=== PATIENT | male | born 1960 | race Caucasian/White ===

== ENCOUNTER 2019-04-29 16:44 | Inpatient (IN) | payer OTHER ==
[~2019-04-29] VITALS: Ht 193 cm; Wt 143.4 kg
--- NOTE | 2019-04-29 16:47 | NUR ---
ECG done as ordered by Dr. Hartman. Patient tolerated the procedure well. Report given to
[2019-04-29 16:49] VITALS: BP_SYST 151
--- NOTE | 2019-04-29 17:25 | NUR ---
Patient to ER bed 01 to gown for evaluation. Side rails up.
--- NOTE | 2019-04-29 17:27 | NUR ---
Patient arrived in the ED c/o heart palpitations, shortness of breath, BLE swelling and abdominal discomfort that started yesterday. Denied any chest pain. Denied any fevers, chills, vomiting or nausea. Patient is alert and oriented x4, respirations even and unlabored, speaking in full sentences and ambulating with a steady gait. VSS, pain level 8/10. Informed of the approximate wait time. Instructed to notify ED staff for any changes in condition or worsening of symptoms while waiting to be seen by a provider. Patient verbalized understanding.
--- NOTE | 2019-04-29 17:30 | NUR ---
ER Dr. Hartman at bedside examining patient.
[2019-04-29] MEDS ORDERED: NACL 0.9% 1,000 ML IV ONE (17:31)
[2019-04-29] MEDS ORDERED: DILTIAZEM HCL 25 MG/5 ML VIAL IVP ONE (17:45)
[2019-04-29] MEDS ORDERED: ASPIRIN 81 MG TAB.CHEW PO ONE (17:45)
[2019-04-29 18:24] LABS: BASOPHILS # (AUTO) 0.1 K/uL (0.0-0.2); BASOPHILS % (AUTO) 0.7 % (0.0-2.0); EOSINOPHILS # (AUTO) 0.1 K/uL (0.0-0.4); EOSINOPHILS % (AUTO) 1.8 % (0.0-4.0); HEMATOCRIT 37.7 % (36-54); HEMOGLOBIN 11.7 g/dL (14.0-18.0); LYMPHOCYTES # (AUTO) 1.4 K/uL (1.0-5.5); LYMPHOCYTES % (AUTO) 17.6 % (20.5-51.5); MEAN CORPUSCULAR HEMOGLOBIN 23 pg (27-31); MEAN CORPUSCULAR HGB CONC 31 % (32-36); MEAN CORPUSCULAR VOLUME 73 fL (79.0-98.0); MONOCYTES # (AUTO) 0.6 K/uL (0.0-1.0); MONOCYTES % (AUTO) 7.3 % (1.7-9.3); NEUTROPHILS # (AUTO) 5.6 K/uL (1.8-7.7); NEUTROPHILS % (AUTO) 72.6 % (40.0-70.0); PLATELET COUNT (AUTO) 285 K/uL (130-430); RED BLOOD CELL COUNT(AUTO) 5.19 MIL/uL (4.2-6.2); RED CELL DISTRIBUTION WIDTH 16.3 % (9.0-15.0); WHITE BLOOD COUNT (AUTO) 7.7 K/uL (4.8-10.8)
[2019-04-29 18:32] LABS: ANION GAP 7 (5-15); CALCIUM 8.5 mg/dL (8.4-11.0); CHLORIDE 103 mmol/L (98-107); CREATININE 0.87 mg/dL (0.55-1.30); GLUCOSE 103 mg/dL (70-99); POTASSIUM 3.9 mmol/L (3.5-5.1); SODIUM SERUM 138 mmol/L (136-145); UREA NITROGEN, BLOOD 14 mg/dL (8-21)
[2019-04-29 18:35] LABS: GFR AFRICAN AMERICAN 116 mL/min (>90)
[2019-04-29 18:41] LABS: ALANINE AMINOTRANSFERASE 32 U/L (12-78); ALBUMIN 3.7 g/dL (3.4-4.8); ASPARTATE AMINOTRANSFERASE 29 U/L (10-37); TOTAL BILIRUBIN 0.9 mg/dL (0.0-1.0)
--- NOTE | 2019-04-29 18:45 | NUR ---
# 20 gauge angiocath placed to LFA. Use of asceptic technique. Opsite placed over site. Blood return noted. Blood for lab drawn from site. Flushed with 10 cc of normal saline. No evidence of infiltration noted. Patient tolerated well.
--- NOTE | 2019-04-29 18:54 | NUR ---
Administered Cardizem IVP and ASA PO as ordered by Dr. Hartman. Patient tolerated the medications well. See eMAR for details.
--- NOTE | 2019-04-29 19:07 | NUR ---
Note undone in EDM - 04/29/19 at 1908 by [email or web address] # 20 gauge angiocath placed to LFA. Use of asceptic technique. Opsite placed over site. Blood return noted. Blood for lab drawn from site. Flushed with 10 cc of normal saline. No evidence of infiltration noted. Patient tolerated well.
[2019-04-29 19:12] LABS: PROTHROMBIN TIME 10.4 SECS (9.5-12.5)
--- NOTE | 2019-04-29 19:23 | NUR ---
Patient will be admitted to care of Dr. Collado . Admitted to Telemetry unit. Bed placement pending.
--- NOTE | 2019-04-29 19:32 | NUR ---
Urine specimen collected and dropped off at the lab.
[2019-04-29] MEDS: DILTIAZEM HCL 30 MG TABLET PO SCH ×2 (19:45→23:49)
--- NOTE | 2019-04-29 19:45 | NUR ---
Report given and care transferred to DUANE Magallon.
[2019-04-29] MEDS ORDERED: GABA800T PO (20:01)
[2019-04-29] MEDS ORDERED: MORP30TA59 PO (20:01)
[2019-04-29] MEDS ORDERED: AMLO2.5T2 PO (20:01)
[2019-04-29] MEDS ORDERED: ZOLP10TA2 PO (20:01)
[2019-04-29] MEDS ORDERED: SERT-131 PO (20:01)
[2019-04-29] MEDS ORDERED: PANT20TA2 PO (20:01)
--- NOTE | 2019-04-29 20:42 | NUR ---
ad Will go to room 108 C. Belongings list completed. Complete and up to date summary report printed. SBAR report to be given at bedside with opportunity for questions.
--- NOTE | 2019-04-29 20:47 | NUR ---
Patient is full code
--- NOTE | 2019-04-29 21:09 | NUR ---
Transfer to Telemetry via ACLS protocol. Licensed nurse present. IV present no signs or symptoms of infiltration.
--- NOTE | 2019-04-29 21:20 | NUR ---
ADMISSION NOTES; pt. admitted from ER with DX new onset of Atrial fib. pt. settled in bed., call light within reach, denies shortness of breath at this time but c/o tightness on his legs and abdomen, noted swelling. place on conveyor monitor. HR 104. IV lock on rt. forearm. pt. moves all extremities well. instructed to call for help and verbalized understanding.
[2019-04-29 21:30] VITALS: BP_SYST 146
--- NOTE | 2019-04-29 23:30 | NUR ---
NOTES: pt. woke up sitting at the edge of the bed, IVF completed, IV lock on left forearm. pt. back to bed and repositioned self.
[2019-04-29 23:40] VITALS: BP_SYST 160
--- NOTE | 2019-04-30 | NUR ---
NOTES: pt. getting upset about his pain medication, tried to explain no medications has been reconciled ,that will call charge nurse Nancy sol aware. Addendum: 04/30/19 at 0032 by Minerva Reyes RN pt. feeling cold, provided with at least 3 bath blankets.
--- NOTE | 2019-04-30 00:01 | NUR ---
Paged paged doctor mcallister for orders
--- NOTE | 2019-04-30 00:30 | NUR ---
NOTES: paged Dr. Collado again by [place] ([place]).
--- NOTE | 2019-04-30 00:34 | NUR ---
CONSULT: CONSULT CALLED FOR DR. GARCIA I SPOKE WITH DANOBIA STITCH SEPARATOR #[id number] REASON FOR CONSULT: A FIB REQUESTING CONSULT: DR SERRANO STUDIO OWNER PHONE NUMBER: [phone]
--- NOTE | 2019-04-30 01:15 | NUR ---
NOTES: Dr. Collado paged and able to talk to him and informed about pt. c/o pain and his medications, ok to have MS ER po and neurontin, will order.
[2019-04-30] MEDS: GABAPENTIN 300 MG CAPSULE PO SCH ×4 (01:52→22:55)
[2019-04-30] MEDS: MORPHINE SULFATE 30 MG TABLET.SA PO SCH ×2 (01:52→16:42)
--- NOTE | 2019-04-30 01:55 | NUR ---
NOTES: medication verified by pharmacy. medicated with MS Contin and neurontin as ordered fro his back and leg pain. repositioned self for comfort. voided per urinal. pt. given snacks, sandwich ,jello and juice.
--- NOTE | 2019-04-30 03:37 | NUR ---
NOTES: pt. sleeping when checked. call light within reach.
--- NOTE | 2019-04-30 04:00 | NUR ---
NOTES: pt. woke up feeling anxious, wants to walk around, pt. informed not safe with his legs swollen and unsteady. repositioned and covered up with blankets. been voiding per urinal. call light within reach.
--- NOTE | 2019-04-30 05:30 | NUR ---
NOTES: condition observed. continue to monitor.
[2019-04-30 06:30] VITALS: BP_SYST 150
[2019-04-30] MEDS: DILTIAZEM HCL 30 MG TABLET PO SCH ×3 (06:43→18:00)
--- NOTE | 2019-04-30 06:48 | NUR ---
CLOSING NOTES; pt. awakened for due med. HR 97. been sleeping. still noted a feeling of tightness on his lower extremities. remains on atrial fib controlled rate. for further care and assitance. call ligth within reach.
--- NOTE | 2019-04-30 07:07 | NUR ---
Nutrition Update Eris Scale 18 noted. Pt admitted for Atrial Fibrillation Diet: No diet order BMI: 41.6 kg/m2 RD to follow per nutrition care standards.
[2019-04-30 08:00] VITALS: BP_SYST 160
[2019-04-30] MEDS ORDERED: FUROSEMIDE 20 MG/2 ML VIAL IVP ONE (09:30)
[2019-04-30] MEDS ORDERED: ACETAMINOPHEN 325 MG TABLET PO PRN (09:45)
[2019-04-30] MEDS ORDERED: ONDANSETRON HCL 4 MG/2 ML VIAL IVP PRN (09:45)
[2019-04-30] MEDS ORDERED: METOCLOPRAMIDE HCL 10 MG/2 ML VIAL IVP PRN (09:45)
[2019-04-30] MEDS ORDERED: ENOXAPARIN SODIUM 30 MG/0.3 ML SYRINGE SUBCUT ONE ×2 (10:00→16:30)
[2019-04-30] MEDS ORDERED: ENOXAPARIN SODIUM 120 MG/0.8 ML SYRINGE SUBCUT ONE ×2 (10:00→16:30)
[2019-04-30] MEDS: MORPHINE 2 MG/ML INJ. SYRINGE IVP PRN (10:26)
[2019-04-30] MEDS: FUROSEMIDE 40 MG/4 ML VIAL IVP SCH ×2 (16:43→22:56)
[2019-04-30] MEDS: METOPROLOL TARTRATE 25 MG TABLET PO SCH ×2 (16:44→22:56)
[2019-04-30] MEDS ORDERED: RIVAROXABAN 10 MG TABLET PO SCH (18:00)
--- NOTE | 2019-04-30 19:35 | NUR ---
CHANGE OF SHIFT; pt. sleeping when received. no acute distress. call light within reach. will reassess later.
--- NOTE | 2019-04-30 20:45 | NUR ---
NOTES: pt. woke up and wants to ambulate on the hallway since his back hurting, charge nurse Nancy babcock. pt. ambulated and tolerated fairly.
[2019-04-30 21:00] VITALS: BP_SYST 110
[2019-04-30] MEDS ORDERED: ENOXAPARIN SODIUM 120 MG/0.8 ML SYRINGE SQ SCH (21:00)
[2019-04-30] MEDS ORDERED: ENOXAPARIN SODIUM 30 MG/0.3 ML SYRINGE SUBCUT SCH (21:00)
--- NOTE | 2019-04-30 21:00 | NUR ---
NOTES: pt. back to his room. VS checked. all meds on day time was given delayed in the afternoon and all meds will be delayed as well since its too soon for the schedule time and pt. informed. on cardia monitor and shows atrial fib , controlled rate.
--- NOTE | 2019-04-30 23:00 | NUR ---
NOTES: pt. sitting at the edge of the bed, dozing off, due meds given. voided per urinal. jello given per request.
[2019-04-30 23:30] VITALS: BP_SYST 125
[2019-05-01] MEDS: DILTIAZEM HCL 30 MG TABLET PO SCH ×4 (00:13→17:47)
--- NOTE | 2019-05-01 00:19 | NUR ---
NOTES: pt. still awake, getting anxious. back to bed and try to relax. voided large amt. of urine per urinal.
--- NOTE | 2019-05-01 03:00 | NUR ---
NOTES: pt. been sleeping when checked. cardiac pattern unchanged. continue to monitor.
--- NOTE | 2019-05-01 04:26 | NUR ---
NOTES: pt. called and wants his pain pill, informed him its not due till 0600 but will give a little early, pt. agreed. pt. feels hungry, sandwich and jello given. been dozing on and off.
[2019-05-01] MEDS: MORPHINE SULFATE 30 MG TABLET.SA PO SCH ×2 (05:35→17:44)
--- NOTE | 2019-05-01 06:00 | NUR ---
NOTES: due pain medication given, eating his snacks now. pt. needs attended.
--- NOTE | 2019-05-01 06:35 | NUR ---
CLOSING NOTES; pt. sitting in bed dozing off after pain med given. asked to lay down in bed and weighed 336 lbs. no acute distress. IV lock patent and flushed on left forearm. call light within reach. turn to sides by himself. for further assistance.
[2019-05-01 07:15] LABS: BASOPHILS # (AUTO) 0.1 K/uL (0.0-0.2); BASOPHILS % (AUTO) 1.5 % (0.0-2.0); EOSINOPHILS # (AUTO) 0.1 K/uL (0.0-0.4); HEMATOCRIT 36.5 % (36-54); HEMOGLOBIN 11.4 g/dL (14.0-18.0); LYMPHOCYTES # (AUTO) 1.4 K/uL (1.0-5.5); LYMPHOCYTES % (AUTO) 19.8 % (20.5-51.5); MEAN CORPUSCULAR HEMOGLOBIN 23 pg (27-31); MEAN CORPUSCULAR HGB CONC 31 % (32-36); MEAN CORPUSCULAR VOLUME 72 fL (79.0-98.0); MONOCYTES # (AUTO) 0.8 K/uL (0.0-1.0); MONOCYTES % (AUTO) 11.6 % (1.7-9.3); NEUTROPHILS # (AUTO) 4.6 K/uL (1.8-7.7); NEUTROPHILS % (AUTO) 65.1 % (40.0-70.0); PLATELET COUNT (AUTO) 283 K/uL (130-430); RED BLOOD CELL COUNT(AUTO) 5.08 MIL/uL (4.2-6.2); RED CELL DISTRIBUTION WIDTH 16.3 % (9.0-15.0)
[2019-05-01 07:37] LABS: CALCIUM 8.7 mg/dL (8.4-11.0); CREATININE 0.85 mg/dL (0.55-1.30); POTASSIUM 3.7 mmol/L (3.5-5.1)
[2019-05-01 08:00] VITALS: BP_SYST 151
[2019-05-01] MEDS: GABAPENTIN 300 MG CAPSULE PO SCH ×3 (08:33→20:18)
[2019-05-01] MEDS: FUROSEMIDE 40 MG/4 ML VIAL IVP SCH ×2 (08:33→20:17)
[2019-05-01] MEDS: METOPROLOL TARTRATE 25 MG TABLET PO SCH ×2 (08:34→20:18)
[2019-05-01] MEDS: MORPHINE 2 MG/ML INJ. SYRINGE IVP PRN (08:35)
[2019-05-01] MEDS: ENOXAPARIN SODIUM 30 MG/0.3 ML SYRINGE SUBCUT SCH ×2 (08:49→20:30)
[2019-05-01] MEDS: ENOXAPARIN SODIUM 120 MG/0.8 ML SYRINGE SQ SCH ×2 (08:50→20:30)
[2019-05-01 12:00] VITALS: BP_SYST 133
--- NOTE | 2019-05-01 15:34 | NUR ---
Dietitian Recommendations * Recommend CCHO high carb-75 gm, cardiac diet w/ FR 1000 ml/day JUSTINA, RD Please refer to Nutrition Assessment for details. Addendum: 05/01/19 at [address] Amended: Links added.
[2019-05-01 16:00] VITALS: BP_SYST 118
[2019-05-01 17:49] VITALS: BP_SYST 148
--- NOTE | 2019-05-01 18:15 | NUR ---
WOUND CARE CONSULT ORDERED PATIENT IS DIABETIC AND NOTED MULTIPLE OLD SKIN TEARS TO THE BILATERAL ARMS.
--- NOTE | 2019-05-01 18:18 | NUR ---
NUTRITION RECOMMENDATION 1L [facility]UID [facility]RI[facility].WILL INFORM DR SERRANO.
[2019-05-01 19:00] VITALS: BP_SYST 125
--- NOTE | 2019-05-01 19:15 | NUR ---
change of shift.pt.presents quiescent affect;calm,resting viewing tv programming via telephone.no c/o pain,nausea.pt.presents general status stable.respierat[pry ssu stable;unlabored@room air.pt.capable to reposition self.call light/telephone w/in reach of the pt.family visiting@bedside.
[2019-05-01 20:00] VITALS: BP_SYST 125
--- NOTE | 2019-05-01 20:00 | NUR ---
pt.assessed.v/s assessed;values w/in normal limits.no c/o pain,nausea.i have apprised the pt.that i may provide snacks/ beverages w/in the shift.pt.requested snacks/soda;diet coke. have provided the food items.i have demonstrated the room telephone indication;pt.returned the demonstration.general status stable.respiratory status stable;unlabored@room air:o2- sat%=96%pt.capable to ambulate/reposition self independent.call light/telephone placed w/in reach of the pt.
--- NOTE | 2019-05-01 21:00 | NUR ---
2100pmedications administered.i have re-established iv access location;lt.hand;#24g.i have administered lasix;40mg ivp.i have reiterated to the pt.to utilize the urinal to measure all subsequent mictrition output.pt.requested a 2nd urinal.i have provided the 2nd urinal.pt.requested snacks/beverages.i have provided the food items.
--- NOTE | 2019-05-01 22:00 | NUR ---
pt.assessed.pt.presents quiescent affect;calm,resting viewing tv programming via telephone.no c/o pain,nausea.i have attended to the urinal:measured/cleaned placed w/in reach of the pt.pt.had requested snacks/beverages.i have provided the food items.general status stable.respiratory status stable.unlabored.pt.capable to reposition self.call light/telephone w/in reach of the pt.
--- NOTE | 2019-05-01 23:00 | NUR ---
i have attended to the urinal.measured/cleaned.urinal placed w/in reach of the pt.no requests posited@this hour. call light/telephone w/in reach of the pt.
[2019-05-02] VITALS: BP_SYST 124
--- NOTE | 2019-05-02 | NUR ---
pt.assessed v/s assessed;values w/in normal limits.the v/s assessed p/t to the administration of cardizem;30mg po midnight dose. v/s w/in parameter to administer the cardizem.no c/o pain,nausea.i have attended to the urinal:measured/cleaned.urinal placed w/in reach of the pt.pt.capable to reposition self.call light/telephone placed w/in reach of the pt.
[2019-05-02] MEDS: DILTIAZEM HCL 30 MG TABLET PO SCH ×2 (00:14→05:34)
--- NOTE | 2019-05-02 02:00 | NUR ---
pt.assessed pt.presents quiescent affect;calm,somnolent.i have attended to the urinal;measured/cleaned placed w/in reach of the pt. general status stable.respiratory status stable;unlabored.pt.capable to reposition self.call light/telephone w/in reach of the pt.
--- NOTE | 2019-05-02 04:00 | NUR ---
pt.assessed pt.presents quiescent affect;calm,somnolent.i have attended to the urinal;measured/cleaned.placed w/in reach of the pt. general status stable.respiratory status stable;unlabored.pt.capable to reposition self.call light/telephone w/in reach of the pt.
[2019-05-02] MEDS: MORPHINE 4 MG/ML INJ. SYRINGE IVP PRN ×2 (04:39→08:45)
[2019-05-02] MEDS: MORPHINE SULFATE 30 MG TABLET.SA PO SCH ×2 (05:34→17:13)
[2019-05-02] MEDS ORDERED: D5W 1,000 ML IV PRN (05:51)
[2019-05-02] MEDS ORDERED: GLUCOSE 15 GM GEL (in 37.5 GM TUBE) PO PRN (06:00)
[2019-05-02] MEDS ORDERED: DEXTROSE 50% JECT 50 ML DISP.SYRIN IVP PRN (06:00)
--- NOTE | 2019-05-02 06:30 | NUR ---
pt.assessed v/s assessed p/t the administration cardizem;30mg po 0600 dose.vs w/in parameters to administer the cardizem. i have administered ms-contin;30mg po:0600a dose.pt,had requested soda;diet coke i have provided the soda.i have attended to the urinal;measured/cleaned.pt.capable t0 reposition/ambulate self.call light /telephone w/in reach of the pt.
[2019-05-02 07:36] LABS: CALCIUM 8.9 mg/dL (8.4-11.0); CREATININE 0.81 mg/dL (0.55-1.30); POTASSIUM 3.5 mmol/L (3.5-5.1)
[2019-05-02 08:05] VITALS: BP_SYST 128
[2019-05-02] MEDS: FUROSEMIDE 40 MG/4 ML VIAL IVP SCH ×2 (08:43→20:05)
[2019-05-02] MEDS: GABAPENTIN 300 MG CAPSULE PO SCH ×3 (08:44→20:05)
[2019-05-02] MEDS: DILTIAZEM HCL 180 MG CAP.SR.24H PO SCH (08:44)
[2019-05-02] MEDS ORDERED: POTASSIUM CHLORIDE 20 MEQ TAB.PRT.SR PO ONE (08:45)
[2019-05-02] MEDS: METOPROLOL SUCCINATE 50 MG TAB.SR.24H (TOPROL XL) PO SCH (08:50)
--- NOTE | 2019-05-02 10:24 | NUR ---
pt given new gown and corky santo in bed resting.
[2019-05-02 12:02] VITALS: BP_SYST 118
--- NOTE | 2019-05-02 12:07 | NUR ---
PT'S VITALS WNL. NO FEVER. DENIES PAIN, NO SOB. LUNCH SERVED. WILL CONT TO MONITOR.
--- NOTE | 2019-05-02 16:27 | NUR ---
Social Service Note: JEWELRY ENAMELER met with pt at bedside; pt states that he received IHSS at home about 2 hours day. Pt states that he recently moved from [place] to [place]; pt states that he needs to find a new IHSS worker and a new PCP. Pt states that he had a PCP appointment today that he was unable to make due to being hospitalized. JEWELRY ENAMELER provided pt with the phone numbers for [employer] to alert them that pt has moved. JEWELRY ENAMELER will remain available for support and will follow up as needed.
[2019-05-02 16:33] VITALS: BP_SYST 112
[2019-05-02] MEDS ORDERED: RIVAROXABAN 10 MG TABLET PO SCH (18:00)
--- NOTE | 2019-05-02 18:55 | NUR ---
closing notes; pt's has been stable the whole shift, given pain meds for chronic pain. no fever,. no sob. will endorse to night nurse.
--- NOTE | 2019-05-02 19:30 | NUR ---
INITIAL NOTE: Received report from day shift nurse, patient is alert and oriented x 4, denies any pain or sob.Vitals stable. Patient has a 20G LFA intact and patent, no s/s of phlebitis or infiltration. Flushed with 10cc NS, patient tolerated well. Patient with family member at bedside, able to ambulate. Safety measures enforced and met. Bed in lowest position. Call light within reach. Will continue to monitor and carry out plan of care.
[2019-05-02 20:15] VITALS: BP_SYST 137
--- NOTE | 2019-05-02 21:30 | NUR ---
ROUNDS: Patient compliant with all scheduled meds, he tolerated well. Patient resting in bed no signs of pain or sob, family member at bedside. Bed locked and in the lowest position. Call light within reach. Will continue to monitor and carry out plan of care.
--- NOTE | 2019-05-02 23:30 | NUR ---
ROUNDS: PATIENT SHOWING NO RESPIRATORY DISTRESS OR PAIN. PATIENT VITALS STABLE. PATIENT ON TELEMETRY MONITORING.
--- NOTE | 2019-05-03 00:57 | NUR ---
ROUNDS: PATIENT AWAKE AND ON HIS PHONE SHOWING NO SIGNS AND OR SYMPTOMS OF RESPIRATORY DISTRESS. PATIENT VERBALIZES PAIN OF AN 8 OUT OF 10. PRN MEDICATION FOR SEVERE PAIN WILL BE GIVEN AT THIS TIME. BED IN LOWEST POSITION. CALL LIGHT WITHIN REACH. WILL CONTINUE TO MONITOR AND CARRY OUT PLAN OF CARE.
[2019-05-03 01:09] VITALS: BP_SYST 133
[2019-05-03] MEDS: MORPHINE 4 MG/ML INJ. SYRINGE IVP PRN (01:09)
--- NOTE | 2019-05-03 02:57 | NUR ---
ROUNDS: Patient asleep and resting. Patient showing no signs of pain or sob. will continue to monitor and carry out plan of care.
--- NOTE | 2019-05-03 04:47 | NUR ---
ROUNDS: patient asleep and showing no respiratory distress or pain. patient bed in lowest position. call light within reach. will continue to monitor and carry out plan of care.
[2019-05-03] MEDS: MORPHINE SULFATE 30 MG TABLET.SA PO SCH (06:13)
--- NOTE | 2019-05-03 06:25 | NUR ---
CLOSING NOTE: PATIENT SLEPT WELL THROUGHOUT THE NIGHT. AT THIS TIME PATIENT IS RESTING IN BED, STABLE, NO SIGNS OF RESPIRATORY DISTRESS, CALL LIGHT WITHIN REACH. BED IN LOCKED AND AT THE LOWEST LEVEL. FALL AND SAFETY PRECAUTIONS HAVE BEEN IN PLACE THROUGHOUT THE NIGHT. WILL CONTINUE TO MONITOR UNTIL BEDSIDE REPORT IS GIVEN TO AM SHIFT NURSE.
[2019-05-03 07:30] LABS: CALCIUM 8.9 mg/dL (8.4-11.0); CREATININE 0.89 mg/dL (0.55-1.30); POTASSIUM 4.1 mmol/L (3.5-5.1)
[2019-05-03 07:52] VITALS: BP_SYST 128
--- NOTE | 2019-05-03 08:00 | NUR ---
Opening: received pt in bed, pt is alert and oriented, denies pain. no sob, iv access intact and patent. no s/s of infiltration. safety precaution in place. call light in reach. bed in low position. will cont to monitor.
[2019-05-03] MEDS: DILTIAZEM HCL 180 MG CAP.SR.24H PO SCH (08:28)
[2019-05-03] MEDS: METOPROLOL SUCCINATE 50 MG TAB.SR.24H (TOPROL XL) PO SCH (08:28)
[2019-05-03] MEDS: FUROSEMIDE 40 MG/4 ML VIAL IVP SCH (08:29)
[2019-05-03] MEDS: GABAPENTIN 300 MG CAPSULE PO SCH (08:29)
--- NOTE | 2019-05-03 10:00 | NUR ---
PT IN BED, RESTING COMFORTABLY. CALL LIGHT IN REACH, BED IN LOW POSITION. ENCOURAGED TO CALL FOR ASSIST.
[2019-05-03] MEDS ORDERED: FURO-149 PO (10:58)
[2019-05-03] MEDS ORDERED: DILT180C PO (10:58)
[2019-05-03] MEDS ORDERED: RIVA20TA PO (10:58)
[2019-05-03] MEDS ORDERED: METO-542 PO (10:58)
[2019-05-03 12:47] VITALS: BP_SYST 141
--- NOTE | 2019-05-03 13:00 | NUR ---
PT RESTING, NO C/O PAIN. NO SOB. NO RESP DISTRESS. CALL LIGHT IN REACH. WILL CONT TO MONITOR.
--- NOTE | 2019-05-03 18:10 | NUR ---
D/C Patient Patient given medication reconciliation form and D/C instructions. Exit Care provided. Patient verbalized understanding. MD discussed with patient the results and treatment provided. Ambulatory with steady gait for discharge to home. Patient in stable condition, ID band removed. IV catheter removed, intact and dressing applied, no active bleeding. Rx of diltiazem, Lasix, Metoprolol, xarelto. given. Patient educated on pain management. All belongings sent with patient.
== END 2019-05-03 16:10 | disposition home or self-care (01) | DRG 308 ==
LOC: SED 16:44 → STU 19:25
PROVIDERS: ADMIT Internal Medicine Hospice and Palliative Medicine; ATTEND Internal Medicine Hospice and Palliative Medicine
DX: I48.91 Unspecified atrial fibrillation (principal); I50.41 Acute combined systolic (congestive) and diastolic (congestive) heart failure; Z68.41 Body mass index [BMI] 40.0-44.9, adult; D68.69 Other thrombophilia; I11.0 Hypertensive heart disease with heart failure; E11.9 Type 2 diabetes mellitus without complications; E66.01 Morbid (severe) obesity due to excess calories; F17.210 Nicotine dependence, cigarettes, uncomplicated; G89.29 Other chronic pain; F41.9 Anxiety disorder, unspecified; K21.9 Gastro-esophageal reflux disease without esophagitis; Z98.1 Arthrodesis status; Z79.899 Other long term (current) drug therapy
CPT/HCPCS: 36415; 71045; 80048; 80053; 83880; 84443-TC; 84484; 85025; 85379; 85610-TC; 85730-TC; 93306; 96361; 96374; 99285; G0378; J1650; J1940; J2270; J2274; J3490

== ENCOUNTER 2019-08-06 01:16 | Emergency (ER) | payer OTHER, MEDICAID ==
[~2019-08-06] VITALS: Ht 188 cm; Wt 140.6 kg
[2019-08-06 01:16] VITALS: BP_SYST 124
[~2019-08-06 01:16] MED LIST: DILT180C PO; FURO-149 PO; GABA800T PO; METO-542 PO; MORP30TA59 PO; PANT20TA2 PO; RIVA20TA PO; SERT-131 PO; ZOLP10TA2 PO
--- NOTE | 2019-08-06 01:16 | NUR ---
Patient to ER bed 4 to gown for evaluation. Side rails up. Report given to DUANE Izquierdo.
[2019-08-06] MEDS ORDERED: ACETAMINOPHEN 500 MG TABLET PO ONE (01:30)
[2019-08-06] MEDS ORDERED: MORPHINE 4 MG/ML INJ. SYRINGE IVP ONE (02:00)
[2019-08-06] MEDS ORDERED: MORPHINE 4 MG/ML INJ. SYRINGE IM ONE (02:30)
[2019-08-06 02:54] LABS: BILIRUBIN,URINE NEGATIVE (NEGATIVE); BLOOD, URINE 3+ (NEGATIVE); CLARITY/URINE SL CLOUDY (CLEAR); COLOR,URINE YELLOW (YELLOW); GLUCOSE,URINE NEGATIVE (NEGATIVE); KETONES,URINE NEGATIVE (NEGATIVE); LEUKOCYTE ESTERASE ,URINE 1+ (NEGATIVE); NITRITE, URINE NEGATIVE (NEGATIVE); PH,URINE 5.5 (5.0-8.0); PROTEIN URINE 1+ (NEGATIVE)
[2019-08-06 03:30] LABS: BACTERIA,URINE FEW /HPF (None Seen); RBC,URINE 20-50 /HPF (0-3)
[2019-08-06] MEDS ORDERED: NACL 0.9% 1,000 ML IV ONE ×2 (03:30→08:45)
[2019-08-06 04:35] LABS: BASOPHILS # (AUTO) 0.1 K/uL (0.0-0.2); BASOPHILS % (AUTO) 0.5 % (0.0-2.0); EOSINOPHILS % (AUTO) 0.1 % (0.0-4.0); HEMATOCRIT 35.8 % (36-54); LYMPHOCYTES # (AUTO) 0.9 K/uL (1.0-5.5); LYMPHOCYTES % (AUTO) 4.8 % (20.5-51.5); MEAN CORPUSCULAR HEMOGLOBIN 21 pg (27-31); MEAN CORPUSCULAR HGB CONC 31 % (32-36); MEAN CORPUSCULAR VOLUME 67 fL (79.0-98.0); MONOCYTES # (AUTO) 1.2 K/uL (0.0-1.0); MONOCYTES % (AUTO) 6.4 % (1.7-9.3); NEUTROPHILS # (AUTO) 17.3 K/uL (1.8-7.7); NEUTROPHILS % (AUTO) 88.2 % (40.0-70.0); PLATELET COUNT (AUTO) 276 K/uL (130-430); RED BLOOD CELL COUNT(AUTO) 5.32 MIL/uL (4.2-6.2); RED CELL DISTRIBUTION WIDTH 18.8 % (9.0-15.0); WHITE BLOOD COUNT (AUTO) 19.6 K/uL (4.8-10.8)
[2019-08-06 04:40] LABS: ALBUMIN 3.7 g/dL (3.4-4.8); POTASSIUM 3.6 mmol/L (3.5-5.1); TOTAL BILIRUBIN 1.9 mg/dL (0.0-1.0)
[2019-08-06] MEDS ORDERED: DILTIAZEM HCL 25 MG/5 ML VIAL IVP ONE (04:45)
[2019-08-06 04:48] LABS: STREPTOCOCCUS A SCREEN (RAPID) NEGATIVE (NEGATIVE)
[2019-08-06 04:59] LABS: INFLUENZA A&B ANTIGEN SCREEN NEGATIVE FOR A & B (NEGATIVE)
--- NOTE | 2019-08-06 05:10 | NUR ---
pt sent to [facility] for ultrasound testing via ambulance. will return post test results
--- NOTE | 2019-08-06 07:17 | NUR ---
Received report from DUANE Izquierdo. Patient is currently in [place] for a STAT US.
--- NOTE | 2019-08-06 08:15 | NUR ---
Patient is back from [place], in stable condition.
[2019-08-06] MEDS ORDERED: MORPHINE 2 MG/ML INJ. SYRINGE IVP ONE (08:30)
[2019-08-06] MEDS ORDERED: IOHEXOL 100 ML IV ONE (09:05)
--- NOTE | 2019-08-06 09:14 | NUR ---
Administered Morphine Sulfate IVP as ordered by Dr. Myrick. Patient tolerated the medications well. See eMAR for details.
--- NOTE | 2019-08-06 09:45 | NUR ---
Patient is screaming "Can somebody help me? I'm in pain. This is bullshit! Brandon! Eliot!" Offered him pain medications, he refused.
--- NOTE | 2019-08-06 09:55 | NUR ---
Patient is yelling out, "Fuck! This is bullshit!". Again, offered more pain medications. Refused and stated he wants to go home.
[2019-08-06 10:02] VITALS: BP_SYST 128
--- NOTE | 2019-08-06 10:10 | NUR ---
Patient is screaming, "Ahmetk, kelly, kelly! You idiots. Can somebody help me? I need to charge my phone!"
[2019-08-06] MEDS ORDERED: KETAMINE 30 MG/3 ML SYRINGE 30 MG in NS 100 ML IV ONE (10:15)
--- NOTE | 2019-08-06 10:15 | NUR ---
Patient stated he's in so much pain. Screamed "Fuck all of you, I need to get out of here."
--- NOTE | 2019-08-06 10:39 | NUR ---
Patient stated "I will come back and shoot all of you." Patient is punching the wall and yelling "fuck you all, you are all idiots, you motherfuckers." Notified Security and debone processing supervisor.
--- NOTE | 2019-08-06 10:43 | NUR ---
Patient eloped through the ambulance bay, respirations even and unlabored and walking with a steady gait.
[2019-08-06] MEDS ORDERED: LEVOFLOXACIN 500 MG/D5W 100 ML IV ONE (10:45)
--- NOTE | 2019-08-06 10:54 | NUR ---
Paul LANGLEY just got here. Dr. Myrick gave Officer Bre.
[2019-08-06] MEDS ORDERED: KETAMINE 30 MG/3 ML SYRINGE ONE (10:56)
--- NOTE | 2019-08-06 11:00 | NUR ---
Patient left his cane, a flashlight with a knife, a white plastic bag filled with bottles of prescription medications, a cellphone creative specialist, and some knick knacks. Turned over all these personal belongings to the security architect.
== END 2019-08-06 10:51 | disposition home or self-care (01) ==
LOC: SED 01:16
DX: N50.811 Right testicular pain (principal); N50.812 Left testicular pain; K21.9 Gastro-esophageal reflux disease without esophagitis; Z79.899 Other long term (current) drug therapy; Z20.828 Contact with and (suspected) exposure to other viral communicable diseases
CPT/HCPCS: 36415; 71045; 74177; 76870; 80053; 81000; 84484; 85025; 86403; 86710; 87040; 87081; 87086; 87186; 93005; 96372; 96374; 96375; 99285; J2270 ×2; J3490; J7030; Q9967; U0003